=== PATIENT | female | born 1990 | race Caucasian/White ===

== ENCOUNTER 2017-05-04 22:14 | Emergency (ER) ==
[2017-05-04 22:29] VITALS: BP 131/84; TEMP 99.2; BMI 16.5
[2017-05-04] MEDS ORDERED: DECADRON 4 MG/ML SDV IM STA (23:21)
--- NOTE | 2017-05-04 23:28 | ED.PDOC ---
General ED Provider: Dr. ALEK YU Chief Complaint: Chest Wall Injury/Pain Stated Complaint: been hurting left arm ,tingling, pain starts from mid back and radiates to left arm. Time Seen by Physician: 23:26 Mode of Arrival: Walk-In Information Source: Patient Primary Care Provider: CARLOS EDUARDO GALLAGHER Nursing and Triage Documentation Reviewed and Agree: Yes Musculoskeletal Complaint Exam - Back Pain Complaint/Exam Mechanism of Injury: Reports: No known trauma Symptoms Are: Still present Timing: Constant Episodes Lasting: Hours Initial Severity: Mild Current Severity: Mild Location: Reports: Discrete Character: Reports: Aching, Throbbing Aggravating: Reports: Movements, Lifting Alleviating: Reports: None Associated Signs and Symptoms: Denies: Swelling, Redness, Bruising, Fever, Weakness, Numbness, Tingling, Abdominal pain, Flank pain, Bladder incontinence, Bowel incontinence, Weight loss, Pain with weight bearing TAD Risk Factors: Reports: None AAA Risk Factors: Reports: None Cauda Equina Risk Factors: Reports: None Epidural Abcess Risk Factors: Reports: None Related Surgical History: Reports: None Focal Tenderness: Yes Paraspinal Muscle Tenderness: Yes Paraspinal Muscle Spasm: Yes Scoliosis: No Lordosis: No SLR Test: Right Negative, Left Negative Hip Motion Testing Pain: Right Negative, Left Negative Focal Weakness: Present: None Focal Sensory Loss: Present: None Gait: Present: Normal Differential Diagnoses: Herniated Disk, Strain Review of Systems - Review Of Systems Constitutional: Reports: No symptoms Eyes: Reports: No symptoms Ears, Nose, Mouth, Throat: Reports: No symptoms Respiratory: Reports: No symptoms Cardiac: Reports: No symptoms GI: Reports: No symptoms : Reports: No symptoms Musculoskeletal: Reports: No symptoms Skin: Reports: No symptoms Neurological: Reports: No symptoms Endocrine: Reports: No symptoms Hematologic/Lymphatic: Reports: No symptoms All Other Systems: Reviewed and Negative Past Medical History - Past Medical History Previously Healthy: Yes Endocrine: Reports: None Cardiovascular: Reports: None Respiratory: Reports: None Hematological: Reports: None Gastrointestinal: Reports: None Genitourinary: Reports: None Neuro/Psych: Reports: None Musculoskeletal: Reports: None Cancer: Reports: None Last Menstrual Period: 4 WEEKS AGO - Surgical History General Surgical History: Reports: None - Family History Family History: Reports: None - Social History Smoking Status: Never smoker Hx Substance Use: No Alcohol Screening: None - Immunizations Tetanus Shot up to Date: (UNKNOWN) Physical Exam - Physical Exam Appearance: Well-appearing, No pain distress, Well-nourished Eyes: MARCI, EOMI, Conjunctiva clear ENT: Ears normal, Nose normal, Oropharynx normal Respiratory: Airway patent, Breath sounds clear, Breath sounds equal, Respirations nonlabored Cardiovascular: RRR, Pulses normal, No rub, No murmur GI/: Soft, Nontender, No masses, Bowel sounds normal, No Organomegaly Musculoskeletal: Normal strength, ROM intact, No edema, No calf tenderness Skin: Warm, Dry, Normal color Neurological: Sensation intact, Motor intact, Reflexes intact, Cranial nerves intact, Alert, Oriented Psychiatric: Affect appropriate, Mood appropriate Interpretation - Radiology Interpretation Radiology Interpretation By: Radiologist Radiology Results: Negative Exam Interpreted: CT Scan Critical Care Note - Critical Care Note Total Time (mins): 0 Course - Course Orders, Labs, Meds: Lab Review 05/04/17 23:30 Urine Test Negative Orders Category Date Time Status URINE Stat LAB 05/04/17 23:30 Completed Dexamethasone 4 mg/ml Inj [Decadron 4 mg/ml Sdv] MEDS 05/04/17 23:21 Discontinued 4 mg IM ONCE STA CT THORACIC SPINE W/O CONTRAST Stat RADS 05/04/17 23:21 Completed Medications Discontinued Medications Generic Name Dose Route Start Last Admin Trade Name Freq PRN Reason Stop Dose Admin Dexamethasone Sodium Phosphate 4 mg 05/04/17 23:21 05/04/17 23:33 Decadron 4 Mg/Ml Sdv IM 05/04/17 23:22 4 mg ONCE STA Administration Vital Signs: Temp Pulse Resp BP Pulse Ox 05/04/17 22:15 99.2 F 72 20 131/84 100 Departure - Departure Time of Disposition: 00:31 Disposition: HOME SELF-CARE Discharge Problem: Thoracic radiculopathy Instructions: Lower Back Exercises (ED) Condition: Stable Pt referred to PMD for follow-up: Yes Additional Instructions: rest hot pack needs further evaluation with MRI. Prescriptions: Cyclobenzaprine HCl [Flexeril] 5 mg PO BID #14 tablet Hydrocodone/Acetaminophen [Lindsay 5-325 Tablet] 1 tab PO TID PRN #12 tablet PRN Reason: PAIN Allergies/Adverse Reactions: Allergies No Known Drug Allergies Adverse Reaction (Verified 05/04/17 22:27) Home Medications: Ambulatory Orders Ranitidine HCl [Zantac] 300 mg PO BID 05/04/17 Cyclobenzaprine HCl [Flexeril] 5 mg PO BID #14 tablet 05/05/17 Hydrocodone/Acetaminophen [Lindsay 5-325 Tablet] 1 tab PO TID PRN #12 tablet 05/05 Disposition Discussed With: Patient, Family
[2017-05-04 23:36] LABS: URINE PREGNANCY INTERNAL QC INTERNAL QC VALID
--- NOTE | 2017-05-05 00:25 | CT ---
EXAM: CT thoracic spine without intravenous contrast 05/04/2017. Sagittal and coronal reformatted images obtained HISTORY: Left upper back pain COMPARISON: None. FINDINGS: Normal anatomic alignment is maintained. Vertebral bodies appear intact without fracture. The facet joints align normally. Intervertebral disc spaces are grossly preserved. There is no evidence of acute fracture or subluxation at any level. The spinal canal appears grossly patent. IMPRESSION: No acute osseous abnormality of the thoracic spine.
[2017-05-05] MEDS ORDERED: TORADOL IM STA (00:30)
== END 2017-05-05 01:10 | disposition home or self-care (01) ==
LOC: ED 22:14
DX: M54.14 Radiculopathy, thoracic region (principal)
CPT/HCPCS: 81025; 96372; 99284

== ENCOUNTER 2018-02-01 18:25 | Emergency (ER) ==
[2018-02-01 18:31] VITALS: BP 128/79; TEMP 98.3; BMI 17.1
[2018-02-01] MEDS ORDERED: SODIUM CHLORIDE 1,000 ML IV STA (18:38)
[2018-02-01] MEDS ORDERED: ZOFRAN 4 MG/2 ML IVP STA (18:39)
--- NOTE | 2018-02-01 19:47 | CT ---
Exam: CT of the abdomen and pelvis without contrast History: Persistent nausea Technique: [address] of the abdomen pelvis without intravascular contrast FINDINGS: The lung bases are clear. No significant liver abnormality. The adrenals, pancreas and spl een are unremarkable. The stomach and hiatus are unremarkable.The gallbladder appears normal. Kidneys and proximal collecting system are unremarkable. The appendix is normal. Bowel loops demonstrate nor mal caliber. No inflamatory change seen in the mesentery or retroperitoneum. Vascular structures appe ar normal by noncontrast CT. Pelvic genitourinary structures appear normal. Pelvic bowel loops are unremarkable. No inflammatory c hange in the pelvic fat. No acute abnormality of the abdominal or pelvic skeleton. Impression: 1. No inflammatory process, bowel or urinary obstruction. No acute findings of the abdomen or pelvi s.
--- NOTE | 2018-02-01 19:49 | ED.PDOC ---
General ED Provider: Dr. CARMEN WERNER-ER Chief Complaint: Nausea/Vomiting Stated Complaint: im nauseated since i started zoloft--i have stopped it Time Seen by Physician: 19:00 Mode of Arrival: Walk-In Information Source: Patient, Family Exam Limitations: No limitations Primary Care Provider: FRANCIE RUBIN Nursing and Triage Documentation Reviewed and Agree: Yes Reviewed sepsis parameters & appropriate labs ordered?: Yes System Inflammatory Response Syndrome: Not Applicable Sepsis Protocol: For patient's 13 years and over: Temp is 96.8 and below OR 101 and greater Pulse >90 BPM Resp >20/minute Acutely Altered Mental Status Are patient's symptoms suggestive of a new infection, such as: -Pneumonia -Skin, Soft Tissue -Endocarditis -UTI -Bone, Joint Infection -Implantable Device -Acute Abdominal Infection -Wound Infection -Meningitis -Blood Stream Catheter Infection -Unknown GI Complaint Exam - Abdominal Pain Complaint/Exam Onset: Gradual Duration: several days Symptoms Are: Still present Timing: Constant Initial Severity: Mild Current Severity: Mild Location of Pain: Discrete Character: Reports: Dull Aggravating: Reports: None Alleviating: Reports: None Associated Signs and Symptoms: Reports: Nausea. Denies: Diaphoresis, Fever, Cough, Chest pain, Dizziness, Back pain, Constipation, Blood in stool, Dysuria, Urinary frequency, Decreased urine output, Decreased appetite, Vaginal bleeding , Vaginal discharge, Vomiting, Diarrhea, Sore throat, Decreased activity Patient Rh Status: Unknown Abdominal Findings: Present: None Differential Diagnoses: Bowel Obstruction, Constipation, Pancreatitis, UTI, Review of Systems - Review Of Systems Constitutional: Reports: No symptoms Eyes: Reports: No symptoms Ears, Nose, Mouth, Throat: Reports: No symptoms Respiratory: Reports: No symptoms Cardiac: Reports: No symptoms GI: Reports: Nausea : Reports: No symptoms Musculoskeletal: Reports: No symptoms Skin: Reports: No symptoms Neurological: Reports: No symptoms Endocrine: Reports: No symptoms Hematologic/Lymphatic: Reports: No symptoms All Other Systems: Reviewed and Negative Past Medical History - Past Medical History Previously Healthy: Yes Endocrine: Reports: None Cardiovascular: Reports: None Respiratory: Reports: None Hematological: Reports: None Gastrointestinal: Reports: None Genitourinary: Reports: None Neuro/Psych: Reports: None Musculoskeletal: Reports: None Cancer: Reports: None Last Menstrual Period: currently - Surgical History General Surgical History: Reports: None - Family History Family History: Reports: None - Social History Smoking Status: Never smoker Substance Use: No Alcohol Screening: None Lives: With family Physical Exam - Physical Exam Appearance: Well-appearing, No pain distress, Well-nourished Eyes: MARCI, EOMI, Conjunctiva clear ENT: Ears normal, Nose normal, Oropharynx normal Neck: Supple Respiratory: Airway patent, Breath sounds clear, Breath sounds equal, Respirations nonlabored Cardiovascular: RRR GI/: Soft, Nontender, No masses, Bowel sounds normal, No Organomegaly Musculoskeletal: Normal strength Skin: Warm, Dry, Normal color Neurological: Sensation intact, Motor intact, Reflexes intact, Cranial nerves intact, Alert, Oriented Psychiatric: Affect appropriate, Mood appropriate Interpretation - Radiology Interpretation Radiology Interpretation By: Radiologist Radiology Results: Negative Exam Interpreted: CT Scan Re-Evaluation - Re-Evaluation Time of Re-Evaluation: 19:51 Status: Improved Vital Signs Stable: Yes Pain Level: 0 Appearance: NAD Lungs: Clear Skin: Warm and Dry Neuro: Alert and Oriented X3 CV: RRR Critical Care Note - Critical Care Note Total Time (mins): 0 Course - Course Hematology/Chemistry: 02/01/18 18:49 02/01/18 18:49 Orders, Labs, Meds: Lab Review 02/01/18 02/01/18 02/01/18 18:40 18:40 18:40 WBC RBC Hgb Hct MCV MCH MCHC RDW Coeff of Adonis Plt Count Immature Gran % (Auto) Neut % (Auto) Lymph % (Auto) Daniels % (Auto) Eos % (Auto) Baso % (Auto) Immature Gran # (Auto) Neut # (Auto) Lymph # (Auto) Daniels # (Auto) Eos # (Auto) Baso # (Auto) Sodium Potassium Chloride Carbon Dioxide Anion Gap BUN Creatinine Estimated GFR (MDRD) BUN/Creatinine Ratio Glucose Calcium Total Bilirubin AST ALT Alkaline Phosphatase Total Protein Albumin Globulin Albumin/Globulin Ratio Amylase Lipase Urine Color Yellow Urine Clarity Clear Urine pH 5.5 Ur Specific [place] 1.020 Urine Protein 1+ Urine Glucose (UA) Negative Urine Ketones 3+ Urine Blood 2+ Urine Nitrite Negative Urine Bilirubin 1+ Urine Urobilinogen 1.0 Ur Leukocyte Esterase Negative Urine Microscopic RBC 2-5 Ur Squamous Epith Cells 0-2 Urine Bacteria Trace Urine Mucus Trace Urine Test Urine Opiates Screen Negative Ur Oxycodone Screen Negative Urine Methadone Screen Negative Ur Propoxyphene Screen Negative Ur Barbiturates Screen Negative U Tricyclic Antidepress Negative Ur Phencyclidine Scrn Negative Ur Amphetamine Screen Negative U Methamphetamines Scrn Negative U Benzodiazepines Scrn Negative Urine Cocaine Screen Negative U Cannabinoids Screen Negative Influ A Molecular Assay Negative by naat Influ B Molecular Assay Negative by naat 02/01/18 02/01/18 02/01/18 18:40 18:49 18:49 WBC 7.22 RBC 4.52 Hgb 14.1 Hct 42.3 MCV 93.6 MCH 31.2 H MCHC 33.3 RDW Coeff of Adonis 12.4 Plt Count 227 Immature Gran % (Auto) 0.1 Neut % (Auto) 66.2 Lymph % (Auto) 25.9 Daniels % (Auto) 6.4 Eos % (Auto) 1.0 Baso % (Auto) 0.4 Immature Gran # (Auto) 0.0 Neut # (Auto) 4.8 Lymph # (Auto) 1.9 Daniels # (Auto) 0.5 Eos # (Auto) 0.1 Baso # (Auto) 0.0 Sodium 139 Potassium 3.4 L Chloride 102 Carbon Dioxide 24 Anion Gap 16.4 BUN 10 Creatinine 0.68 Estimated GFR (MDRD) 105.00 BUN/Creatinine Ratio 14.70 Glucose 93 Calcium 9.4 Total Bilirubin 2.9 H AST 15 ALT 17 Alkaline Phosphatase 88 Total Protein 7.3 Albumin 4.1 Globulin 3.2 Albumin/Globulin Ratio 1.28 Amylase 29 Lipase 12 Urine Color Urine Clarity Urine pH Ur Specific [place] Urine Protein Urine Glucose (UA) Urine Ketones Urine Blood Urine Nitrite Urine Bilirubin Urine Urobilinogen Ur Leukocyte Esterase Urine Microscopic RBC Ur Squamous Epith Cells Urine Bacteria Urine Mucus Urine Test Negative Urine Opiates Screen Ur Oxycodone Screen Urine Methadone Screen Ur Propoxyphene Screen Ur Barbiturates Screen U Tricyclic Antidepress Ur Phencyclidine Scrn Ur Amphetamine Screen U Methamphetamines Scrn U Benzodiazepines Scrn Urine Cocaine Screen U Cannabinoids Screen Influ A Molecular Assay Influ B Molecular Assay Orders Category Date Time Status ED IV/MEDIPORT/POWERPORT .ONCE EMERGENCY 02/01/18 18:38 Active AMYLASE Stat LAB 02/01/18 18:49 Completed CBC W/ AUTO DIFF Stat LAB 02/01/18 18:49 Completed COMPREHENSIVE METABOLIC PANEL Stat LAB 02/01/18 18:49 Completed FLU A/B MOLECULAR Stat LAB 02/01/18 18:40 Completed LIPASE Stat LAB 02/01/18 18:49 Completed MOLECULAR GROUP A STREP Stat LAB 02/01/18 18:40 Completed URINALYSIS C & S IF INDICATED Stat LAB 02/01/18 18:40 Completed URINE DRUG SCREEN (RAPID FOR ED) [DRUG SCREEN, URINE, LAB 02/01/18 18:40 Completed RAPID] Stat URINE Stat LAB 02/01/18 18:40 Completed 0.9 % Sodium Chloride [Saline Flush] MEDS 02/01/18 18:38 Ordered 1 syr IVF PRN PRN Ondansetron HCl/Pf [Zofran 4 mg/2 ml] MEDS 02/01/18 18:39 Discontinued 4 mg IVP ONCE STA Sodium Chloride 0.9% [Sodium Chloride] 1,000 ml MEDS 02/01/18 18:[address] ABDOMEN/PELVIS WO CONTRAST Stat RADS 02/01/18 18:39 Completed Medications Generic Name Dose Route Start Last Admin Trade Name Freq PRN Reason Stop Dose Admin Sodium Chloride 1 syr 02/01/18 18:38 02/01/18 19:06 Saline Flush IVF 1 syr PRN PRN Administration To flush IV Discontinued Medications Generic Name Dose Route Start Last Admin Trade Name Freq PRN Reason Stop Dose Admin Sodium Chloride 1,000 mls @ 1,000 mls/hr 02/01/18 18:38 02/01/18 19:06 Sodium Chloride IV 02/01/18 19:37 1,000 mls/hr BOLUS STA Administration Ondansetron HCl 4 mg 02/01/18 18:39 02/01/18 19:05 Zofran 4 Mg/2 Ml IVP 02/01/18 18:40 4 mg ONCE STA Administration Vital Signs: Temp Pulse Resp BP Pulse Ox 02/01/18 18:26 98.3 F 74 16 128/79 99 Departure - Departure Time of Disposition: 19:51 Disposition: HOME SELF-CARE Discharge Problem: Nausea Instructions: Acute Nausea and Vomiting (ED) Condition: Good Pt referred to PMD for follow-up: Yes IPMP verified?: Yes Additional Instructions: zofran 4mg q 4hrs prn #4---push fluids--f/u wtih your pcp Allergies/Adverse Reactions: Allergies latex Adverse Reaction (Verified 02/01/18 18:33) Home Medications: Ambulatory Orders Ranitidine HCl [Zantac] 300 mg PO BID 05/04/17 Disposition Discussed With: Patient, Family
== END 2018-02-01 20:10 | disposition home or self-care (01) ==
LOC: ED 18:25
DX: R11.2 Nausea with vomiting, unspecified (principal)
CPT/HCPCS: 36415; 80053; 80306; 81001; 81025; 82150; 83690; 85025; 87502; 87651; 96361; 96374; 99283